=== PATIENT | female | born 1965 | race Caucasian/White ===

== ENCOUNTER 2018-06-06 06:21 | Emergency (ER) | payer MEDICAID, OTHER ==
[~2018-06-06] VITALS: Ht 157.5 cm; Wt 75.6 kg
[~2018-06-06 06:21] MED LIST: ASPI-1158; BISO1TAB; METF500T
[2018-06-06] MEDS ORDERED: CYCLOBENZAPRINE 10MG TABLET PO ONE (07:00)
[2018-06-06] MEDS ORDERED: KETOROLAC 30MG/ML VIAL IM ONE (07:00)
[2018-06-06 08:20] VITALS: BP 141/70
== END 2018-06-06 08:27 | disposition home or self-care (01) ==
LOC: ER 06:21
DX: G89.29 Other chronic pain (principal); M54.5 Low back pain; M54.9 Dorsalgia, unspecified; E11.9 Type 2 diabetes mellitus without complications; I10 Essential (primary) hypertension; E78.00 Pure hypercholesterolemia, unspecified; Z98.890 Other specified postprocedural states; Z88.5 Allergy status to narcotic agent; Z79.899 Other long term (current) drug therapy
CPT/HCPCS: 71045; 96372; 99283; J1885

== ENCOUNTER 2018-12-01 10:13 | Emergency (ER) | payer OTHER ==
[~2018-12-01] VITALS: Ht 157.5 cm; Wt 69.0 kg
[2018-12-01] MEDS ORDERED: FAMOTIDINE 20MG/2ML VIAL IV STA (11:01)
[2018-12-01] MEDS ORDERED: SODIUM CHLORIDE 0.9% 1,000 ML IV ONE (11:01)
[2018-12-01] MEDS ORDERED: ONDANSETRON HCL 4MG/2ML INJ IV STA (11:01)
[2018-12-01 11:16] LABS: BASOPHILS % 0.2 % (0.0-2.0); CHLORIDE 104 mEq/L (98-107); EOSINOPHILS % 0.4 % (0.0-5.0); HEMOGLOBIN. 13.7 g/dL (12.0-16.0); LYMPHOCYTES % 9.9 % (20.0-50.0); MEAN CORPUSCULAR HEMOGLOBIN 28.5 pg (28.0-32.0); MEAN PLATELET VOLUME 8.9 fl (7.4-10.4); MONOCYTES % 4.7 % (2.0-8.0); NEUTROPHILS % 84.8 % (40.0-76.0); PLATELET 255 x1000/uL (130-400); RED BLOOD CELL COUNT 4.82 mill/uL (4.2-5.4); RED CELL DISTRIBUTION WIDTH 14.7 % (11.6-14.6)
[2018-12-01 11:34] LABS: PROTHROMBIN TIME 10.4 sec (9.6-11.0)
[2018-12-01 11:38] LABS: CLARITY URINE CLEAR (CLEAR); COLOR URINE YELLOW (YELLOW); KETONES URINE TRACE (NEGATIVE); LEUKOCYTE ESTERASE URINE NEGATIVE (NEGATIVE); NITRITE URINE NEGATIVE (NEGATIVE); OCCULT BLOOD URINE NEGATIVE (NEGATIVE); PROTEIN URINE NEGATIVE (NEGATIVE); SPECIFIC GRAVITY URINE 1.016 (1.005-1.030); UROBILINOGEN URINE 0.2 E.U./dL (0.2-1.0)
[2018-12-01 13:36] VITALS: BP 130/72
== END 2018-12-01 13:37 | disposition home or self-care (01) ==
LOC: ER 10:13
DX: K29.70 Gastritis, unspecified, without bleeding (principal); E11.65 Type 2 diabetes mellitus with hyperglycemia; E78.00 Pure hypercholesterolemia, unspecified; I10 Essential (primary) hypertension; Z88.5 Allergy status to narcotic agent; Z79.84 Long term (current) use of oral hypoglycemic drugs; Z98.890 Other specified postprocedural states
CPT/HCPCS: 36415; 76705; 80053; 81003; 82962; 83605; 83690; 84484; 85025; 85610; 93005; 96361; 96374; 96375; 99284; J2405; J3490; J7030

== ENCOUNTER 2018-12-13 17:42 | Inpatient (IN) | payer OTHER ==
[~2018-12-13] VITALS: Ht 157.5 cm; Wt 69.9 kg
[2018-12-13] MEDS ORDERED: MORPHINE SULFATE 4 MG/ML CPJ (NOT FOR IM USE) IV STA (22:52)
[2018-12-13] MEDS ORDERED: ONDANSETRON HCL 4MG/2ML INJ IV STA (22:52)
[2018-12-13] MEDS ORDERED: SODIUM CHLORIDE 0.9% 1,000 ML IV ONE (22:52)
[2018-12-13 23:15] LABS: HEMATOCRIT. 38.8 % (36.0-48.0); HEMOGLOBIN. 13.2 g/dL (12.0-16.0); MEAN CORPUSCULAR HEMOGLOBIN 28.3 pg (28.0-32.0); MEAN CORPUSCULAR VOLUME 83.3 fL (81.0-99.0); MEAN PLATELET VOLUME 8.1 fl (7.4-10.4); PLATELET 271 x1000/uL (130-400); RED BLOOD CELL COUNT 4.66 mill/uL (4.2-5.4); RED CELL DISTRIBUTION WIDTH 14.7 % (11.6-14.6)
[2018-12-13 23:19] LABS: CHLORIDE 103 mEq/L (98-107)
[2018-12-13 23:22] LABS: PLATELET ESTIMATE NORMAL
[2018-12-13 23:39] LABS: CLARITY URINE CLOUDY (CLEAR); COLOR URINE YELLOW (YELLOW); KETONES URINE 3+ (NEGATIVE); LEUKOCYTE ESTERASE URINE TRACE (NEGATIVE); NITRITE URINE NEGATIVE (NEGATIVE); OCCULT BLOOD URINE TRACE (NEGATIVE); PH URINE 5.5 (4.5-8.0); PROTEIN URINE NEGATIVE (NEGATIVE); SPECIFIC GRAVITY URINE 1.026 (1.005-1.030); UROBILINOGEN URINE 0.2 E.U./dL (0.2-1.0)
[2018-12-14] MEDS ORDERED: METRONIDAZOLE 500 MG PREMIX 100 ML IV ONE (01:15)
[2018-12-14] MEDS ORDERED: LEVOFLOXACIN 500MG PREMIX 100 ML IV ONE (01:15)
[2018-12-14] MEDS ORDERED: IOHEXOL-300 100 ML BOTTLE ONE (01:22)
[2018-12-14] MEDS ORDERED: SODIUM CHLORIDE 0.45% 1,000 ML IV SCH (05:25)
[2018-12-14] MEDS ORDERED: MAGNESIUM/ALUMINUM HYDROXIDE/SIMETHICONE 30ML UDC PO PRN (05:30)
[2018-12-14] MEDS ORDERED: DOCUSATE SODIUM 100MG CAPSULE PO PRN (05:30)
[2018-12-14] MEDS ORDERED: IPRATROPIUM/ALBUTEROL 0.5-3(2.5)MG/3ML NEB INH PRN (05:30)
[2018-12-14] MEDS ORDERED: ONDANSETRON HCL 4MG/2ML INJ IV PRN (05:30)
[2018-12-14] MEDS ORDERED: CLONIDINE 0.1MG TABLET PO PRN (05:30)
[2018-12-14] MEDS ORDERED: ACETAMINOPHEN 325MG TABLET PO PRN (05:30)
[2018-12-14] MEDS ORDERED: GUAIFENESIN 200MG/10ML SUGAR FREE UDC PO PRN (05:30)
[2018-12-14] MEDS ORDERED: LORAZEPAM 2MG/ML CPJ IV PRN (05:30)
[2018-12-14] MEDS ORDERED: DIPHENHYDRAMINE 50MG/ML VIAL IV PRN (05:30)
[2018-12-14] MEDS ORDERED: HYDROMORPHONE HCL/PF 2MG/ML CPJ IV PRN (05:30)
[2018-12-14] MEDS ORDERED: NA PHOS,M-B/NA PHOS,DI-BA ENEMA 118ML PR PRN (05:30)
[2018-12-14 05:40] VITALS: BP 109/56
[2018-12-14 05:49] VITALS: BP 119/62
[2018-12-14 07:52] VITALS: BP 112/54
[2018-12-14] MEDS ORDERED: METRONIDAZOLE 500 MG PREMIX 100 ML IV SCH (10:00)
[2018-12-14] MEDS ORDERED: AMLO2.5T2 MT (10:21)
[2018-12-14 12:00] VITALS: BP 116/60
[2018-12-14 12:13] LABS: CHLORIDE 108 mEq/L (98-107)
[2018-12-14] MEDS ORDERED: OMEPRAZOLE 20MG CAPSULE EXTENDED RELEASE PO SCH (13:00)
[2018-12-14 15:56] VITALS: BP 114/54
[2018-12-14 16:00] VITALS: BP 114/54
[2018-12-14] MEDS ORDERED: LEVOFLOXACIN 500MG PREMIX 100 ML IV SCH (21:00)
[2018-12-17 09:06] LABS: SACCHAROMYCES CEREVISIAE IGG <20.0 Units (0.0-24.9)
[2018-12-17 15:06] LABS: ATYPICAL pANCA <1:20 titer (Neg:<1:20)
[2018-12-20 13:06] LABS: SACCHAROMYCES CEREVISIAE IGM <20.0 Units (0.0-24.9)
== END 2018-12-14 14:00 | disposition short-term general hospital (02) | DRG 720 ==
LOC: ER 17:42 → 6EST 12-14 02:43 → EDBEDREQ 12-14 02:46 → EDBEDREQTM 12-14 02:46 → ENRESERV 12-14 04:56
PROVIDERS: ADMIT Internal Medicine; ATTEND Internal Medicine
DX: A41.9 Sepsis, unspecified organism (principal); K51.50 Left sided colitis without complications; E11.9 Type 2 diabetes mellitus without complications; E78.00 Pure hypercholesterolemia, unspecified; E78.5 Hyperlipidemia, unspecified; E86.0 Dehydration; I10 Essential (primary) hypertension; I25.10 Atherosclerotic heart disease of native coronary artery without angina pectoris; K29.70 Gastritis, unspecified, without bleeding; Z79.84 Long term (current) use of oral hypoglycemic drugs; Z79.899 Other long term (current) drug therapy; Z98.891 History of uterine scar from previous surgery; Z88.6 Allergy status to analgesic agent
CPT/HCPCS: 36415; 74177; 80048; 82962; 83605; 84484; 86256; 86671; 96365; 96375; 99285; J1956; J2270; J2405; J3490; J7030; Q9967

== ENCOUNTER 2021-09-03 08:44 | Emergency (ER) | payer OTHER ==
[~2021-09-03] VITALS: Ht 162.6 cm; Wt 73.0 kg
[~2021-09-03 08:44] MED LIST changes: +AMLO2.5T2 MT; -ASPI-1158; +ASPI-1406
[2021-09-03 10:30] LABS: CHLORIDE 105 mEq/L (98-107)
[2021-09-03 10:39] LABS: BASOPHILS % 0.2 % (0.0-2.0); EOSINOPHILS % 0.2 % (0.0-5.0); HEMATOCRIT. 40.3 % (36.0-48.0); HEMOGLOBIN. 13.9 g/dL (12.0-16.0); LYMPHOCYTES % 16.9 % (20.0-50.0); MEAN CORPUSCULAR HEMOGLOBIN 30.8 pg (28.0-32.0); MEAN CORPUSCULAR VOLUME 89.6 fL (81.0-99.0); MEAN PLATELET VOLUME 8.6 fl (7.4-10.4); MONOCYTES % 6.6 % (2.0-8.0); NEUTROPHILS % 76.1 % (40.0-76.0); PLATELET 240 x1000/uL (130-400); RED CELL DISTRIBUTION WIDTH 12.8 % (11.6-14.6)
[2021-09-03] MEDS ORDERED: CEFTRIAXONE 1 G PREMIX 50 ML IV ONE (17:00)
[2021-09-03] MEDS ORDERED: AZITHROMYCIN 500MG/250ML 250 ML IV ONE (17:00)
[2021-09-03 17:15] VITALS: BP 138/73
== END 2021-09-03 19:19 | disposition short-term general hospital (02) ==
LOC: ER 08:44 → CANBEDREQ 21:44
DX: U07.1 COVID-19 (principal); I10 Essential (primary) hypertension; E78.00 Pure hypercholesterolemia, unspecified; E11.9 Type 2 diabetes mellitus without complications; Z88.5 Allergy status to narcotic agent; Z98.890 Other specified postprocedural states
CPT/HCPCS: 36415; 71045; 80053; 83880; 84484; 85025; 87426; 87804; 93005; 96365; 96368; 99285; C9803; J0456; U0003; U0005; Z7610

== ENCOUNTER 2023-10-18 10:00 | Emergency (ER) | payer OTHER ==
[~2023-10-18] VITALS: Ht 152.4 cm; Wt 90.0 kg
[2023-10-18 10:13] VITALS: O2SAT 99
[2023-10-18] MEDS ORDERED: LIDO700A15 TP (11:40)
[2023-10-18] MEDS ORDERED: BO1 TP (11:40)
[2023-10-18 11:55] VITALS: BP 140/76; PULSE 90; RESP 16; TEMP 98.7
== END 2023-10-18 11:55 | disposition home or self-care (01) ==
LOC: ER 10:00
DX: R21 Rash and other nonspecific skin eruption (principal); E11.9 Type 2 diabetes mellitus without complications; E78.00 Pure hypercholesterolemia, unspecified; I10 Essential (primary) hypertension; Z98.890 Other specified postprocedural states; Z79.899 Other long term (current) drug therapy; Z88.5 Allergy status to narcotic agent
CPT/HCPCS: 99281; 99283

== ENCOUNTER 2023-12-06 12:47 | Emergency (ER) | payer OTHER ==
[~2023-12-06] VITALS: Ht 157.5 cm; Wt 78.0 kg
[~2023-12-06 12:47] MED LIST changes: +BO1 TP; +LIDO700A15 TP
[2023-12-06 13:30] VITALS: BP 155/59; PULSE 94; RESP 20; TEMP 98.2; O2SAT 97
[2023-12-06] MEDS ORDERED: BENZ100C86 MT (15:51)
== END 2023-12-06 16:48 | disposition home or self-care (01) ==
LOC: ER 12:47
DX: B34.9 Viral infection, unspecified (principal); E11.9 Type 2 diabetes mellitus without complications; E78.00 Pure hypercholesterolemia, unspecified; I10 Essential (primary) hypertension; Z79.899 Other long term (current) drug therapy
CPT/HCPCS: 71045; 87070; 87430; 99284

== ENCOUNTER 2024-11-11 07:44 | Emergency (ER) | payer MEDICAID ==
[~2024-11-11] VITALS: Ht 162.6 cm; Wt 70.0 kg
[~2024-11-11 07:44] MED LIST changes: +BENZ100C86 MT
[2024-11-11 07:51] VITALS: O2SAT 100
[2024-11-11] MEDS: KETOROLAC 30MG/ML VIAL IM ONE (08:54)
[2024-11-11 08:55] VITALS: BP 150/73; PULSE 90; RESP 18; TEMP 37.1; O2SAT 100
[2024-11-11] MEDS: ACETAMINOPHEN 325MG TABLET PO ONE (08:55)
[2024-11-11] MEDS ORDERED: TOPUD MT (09:28)
[2024-11-11] MEDS ORDERED: KETO10TA2 MT (09:28)
== END 2024-11-11 09:49 | disposition home or self-care (01) ==
LOC: ER 07:44
DX: M19.012 Primary osteoarthritis, left shoulder (principal); M25.512 Pain in left shoulder; E11.9 Type 2 diabetes mellitus without complications; E78.00 Pure hypercholesterolemia, unspecified; I10 Essential (primary) hypertension; Z79.899 Other long term (current) drug therapy; Z88.5 Allergy status to narcotic agent; Z98.890 Other specified postprocedural states
CPT/HCPCS: 99283; 29105; 73030; 96372; J1885; A4565